=== PATIENT | male | born 1970 | race American Indian/Alaskan Native ===

== ENCOUNTER 2018-08-07 09:06 | Outpatient (CLI) | payer MEDICARE | END 2018-08-07 09:07 | disposition home or self-care (01) | LOC: CARDIO 09:06 ==

== ENCOUNTER 2018-09-08 09:55 | Outpatient (CLI) | payer MEDICARE | END 2018-09-08 09:56 | disposition home or self-care (01) | LOC: LAB 09:55 ==

== ENCOUNTER 2018-09-19 10:24 | Outpatient (CLI) | payer MEDICARE | END 2018-09-19 10:25 | disposition home or self-care (01) | LOC: LAB 10:24 ==